=== PATIENT | female | born 1970 | race Caucasian/White ===

== ENCOUNTER → 2017-01-03 | Outpatient (CLI) | payer MEDICARE ==
--- NOTE | ~2017-01-03 | CR63 ---
[facility] A Service of [facility] RADIOLOGY TEXT RESULTS PATIENT: PAULINA ARTHUR LOCATION: [facility] : 72 UNIT #: [id number] AGE: [address]: Ralph Gee MD SEX: F ORDER DR: [id number] [facility] [address] [place], [place] [address] [id number] O MR#: [id number] Acc #: [id number] NAME: PAULINA ARTHUR : 1970 SEX: F STUDY DATE/TIME: 01/03/2017 10:58 UNIT: [facility] ROOM: STUDY DESCRIPTION: CR Chest 2 View Attending Physician: Ralph Gee M.D. Referring Physician: Ralph Gee M.D. Ordering Physician: Ralph Gee M.D. Primary Care Physician: Hill Mendez D.O. MEDICAL IMAGING REPORT This report is preliminary unless electronic signature is present EXAM Chest 01/03/2017. [facility] HISTORY 46-year-old woman, short of air, cough, congestion x3 weeks. History of high blood pressure, asthma. COMPARISON None FINDINGS Two-view chest demonstrates large body habitus. Heart is slightly enlarged. Hilar structures are preserved. Lungs are expanded and clear. Costophrenic angles are obscured somewhat by overlying soft tissues. IMPRESSION Large body habitus with mild cardiomegaly. Chest appears negative for an acute finding at this time. Dictated by... Kyle Mercer M.D. THIS IS AN ELECTRONICALLY VERIFIED REPORT Kyle Mercer M.D. at 01/04/2017 8:08 AM DEVON/rosina TD: 01/03/2017 15:27 JOB #: [id number] MEDICAL IMAGING REPORT Page 1 of 1 COPY
== END | disposition home or self-care (01) ==
LOC: CRAD 09:41
DX: R06.02 Shortness of breath (principal); R05 Cough; I51.7 Cardiomegaly
CPT/HCPCS: 71020